=== PATIENT | male | born 1985 | race Caucasian/White ===

== ENCOUNTER 2024-07-21 13:07 | Emergency (ER) | payer OTHER, SELFPAY ==
[2024-07-21 13:18] VITALS: BP 145/93
--- NOTE | 2024-07-21 13:23 | ED.GENMED ---
ED Provider Triage
-
Patient seen by provider in Triage?: Seen in Triage
Attestation: A medical screening examination has been initiated by a qualified medical provider. Based on the assessment performed at this time, it has been determined that an emergent medical condition may exist and the patient has been informed
that further medical evaluation and possible additional diagnostic testing may be needed.
HPI: 39-year-old male presenting to the emergency department for evaluation of left-sided testicular pain that has been ongoing since beginning of June. Patient was in deployment in [place], recently returned home on June 30. Minute
appointment for urology but does not have this appointment scheduled for another week or so. States has increased pain which is what brought him here today. No relief with Advil and extra strength Tylenol which is why he decided to come to the ER.
Patient states that he is sexually active but does not have any concern for STI. No other urinary symptoms. Patient declines STI testing. Ultrasound and urinalysis ordered.
GENERAL: Alert , in no apparent distress
EYE: No visual abnormalities.
NECK: Trachea midline
ENT: No visible abnormalities.
LUNGS: No acute respiratory distress
NEUROLOGICAL: Alert and oriented
SKIN: Skin intact. No visible changes.
MUSCULOSKELETAL: Moving extremities normally
PSYCH: Normal and appropriate interaction.
This is a medical evaluation conducted in person to initiate diagnostic evaluation and provide initial therapeutics. Please see further documentation by the treating clinician.
History of Present Illness
General
Chief Complaint: Male Genito-Urinary Symptoms
Course
Orders/Labs/Results
Orders:
Orders
07/21/24 13:19
US Scrotum Urgent
Comment:
Reason For Exam: left sided pain
07/21/24 13:20
Urinalysis Reflex To Culture Urgent
ED Attending Note
-
Portions of this chart may have been created with voice recognition software.� Occasional wrong word or��sound alike� substitutions may have occurred due to the inherent limitations of voice recognition software.
Discharge Plan
Departure
Prescriptions:
No Action
cetirizine [Zyrtec] 10 mg Tablet
10 mg PO DAILY PRN (Reason: allergies)
montelukast [Singulair] 10 mg Tablet
10 mg PO DAILY
Discharge Date and Time
Print Language: INDONESIAN
[2024-07-21 14:10] LABS: Urine Albumin Negative (Neg - Trace); Urine Bilirubin Negative (Negative); Urine Character Clear (Clear); Urine Color Yellow; Urine Glucose Negative (Negative); Urine Ketone Negative (Negative); Urine Leukocyte Trace (Negative); Urine Nitrite Negative (Negative); Urine Occult Blood Negative (Negative); Urine Urobilinogen Negative (Neg - 1+)
[2024-07-21 14:20] LABS: Urine Amorphous Seen; Urine Red Blood Cell 0-2 /HPF (0-2); Urine Squamous Cell 0-2 /LPF (Few); Urine White Cell 0-2 /HPF (0-5)
--- NOTE | 2024-07-21 17:20 | ED.GENMED ---
History of Present Illness
General
Chief Complaint: Male Genito-Urinary Symptoms
Time Seen by Provider: 07/21/24 15:14
History of Present Illness
History of Present Illness:
39-year-old male with past medical history of asthma and diverticulosis here today for evaluation of approximately 2 to 3 months of left-sided testicular pain. 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
secondary to a varicocele. He has an appointment scheduled with urology this upcoming Wednesday but symptoms today began to worsen. No fevers. No vomiting noted. No dysuria or hematuria. No discharge. No concern for an STI.
Review of Systems
Review of Systems
All Other Systems: ROS reviewed and negative except as documented in HPI and ROS
Phy Exam
Physical Exam
Physical Exam:
GENERAL: Alert , in no apparent distress
EYE: pupils equal and reactive
NECK: Supple
GENITOURINARY: Small area of swelling along the left upper scrotal region in the location of where his veins are suggestive of a varicocele. No tenderness. No rashes/lesions. No discharge.
NEUROLOGICAL: Alert and oriented, no focal neuro deficits
SKIN: Warm and dry, skin intact.
MUSCULOSKELETAL: No edema, well perfused.
PSYCH: Normal and appropriate interaction.
Course
Orders/Labs/Results
Orders:
Orders
07/21/24 13:19
US Scrotum Urgent
Comment:
Reason For Exam: left sided pain
07/21/24 13:58
Urinalysis Reflex To Culture Urgent
Date Specimen was Collected: 07/21/24
Time Specimen was Collected: 13:57
Urine Microscopic Reflex Cult Urgent
Abnormal Lab Results
07/21/24
13:58
Leukocyte Esterase Rfl Trace A
(Negative)
Vital Signs
Initial and Last Documented VS:
Initial Vital Signs
Temp Pulse Resp BP Pulse Ox
98.1 F 85 16 145/93 100
07/21/24 13:18 07/21/24 13:18 07/21/24 13:18 07/21/24 13:18 07/21/24 13:18
Last Documented Vital Signs
Temp Pulse Resp BP Pulse Ox
98.1 F 85 16 145/93 100
07/21/24 13:18 07/21/24 13:18 07/21/24 13:18 07/21/24 13:18 07/21/24 13:18
MDM/Problems Addressed
Differential Diagnosis Includes:
39-year-old male with past medical history of asthma and diverticulosis here today for evaluation of approximately 2 to 3 months of left-sided testicular pain. Overall, patient appears well. On exam, the patient has a small area of swelling along
the left upper scrotal region in the location of where his veins are suggestive of a varicocele. Ultrasound was performed which confirms this. Urinalysis negative for infection. Patient stable for discharge at this time with recommendations to
follow-up with urology. Will prescribe ibuprofen for pain. Recommend supportive measures. All questions answered. Stable for discharge.
*Critical Care Note
Total Time (30-74mins, 75-104mins- exclusive of procedures): Not Applicable
ED Attending Note
-
Portions of this chart may have been created with voice recognition software.� Occasional wrong word or��sound alike� substitutions may have occurred due to the inherent limitations of voice recognition software.
Discharge Plan
Departure
Patient Disposition: Home (Routine Discharge)
Date of Disposition: 07/21/24
Time of Disposition: 17:20
Patient with high blood pressure during this ER visit?: Yes
Covid-19: Not Applicable
Discharge Problem:
Left varicocele
Instructions: Varicocele
Prescriptions:
New
ibuprofen 600 mg tablet
600 mg PO Q6H PRN (Reason: Pain) 7 Days Qty: 28 0RF
Rx Instructions:
Take with food or milk
No Action
cetirizine [Zyrtec] 10 mg Tablet
10 mg PO DAILY PRN (Reason: allergies)
montelukast [Singulair] 10 mg Tablet
10 mg PO DAILY
Referrals:
Edmund Malloy MD [Active] - Follow up in 2-3 days
NONE,* [Family Provider] -
Activity Restrictions/Additional Instructions:
You were seen today for evaluation of left-sided testicular pain.
Your ultrasound reveals evidence of a varicocele which is enlargement of the veins.
Please follow-up with urology as an outpatient for your scheduled appointment this upcoming Wednesday.
Return for any new, worsening, or concerning symptoms.
Interventions
Interventions:
*Risk Screen - Suicide Last Done: 07/21/24 13:18
*General Assessment Last Done: 07/21/24 13:18
*Neglect/Abuse Screening Last Done: 07/21/24 13:18
*Nursing Disposition Last Done: 07/21/24 17:27
ED-Male Genitourinary Assessment Last Done: 07/21/24 17:28
Discharge Date and Time
Print Language: [place]
== END 2024-07-21 17:29 | disposition home or self-care (01) ==
LOC: EMR 13:07
PROVIDERS: Physician Assistant Medical; EMERGENCY PHYSICIAN Student in an Organized Health Care Education/Training Program
DX: I86.1 Scrotal varices (principal); J45.909 Unspecified asthma, uncomplicated
CPT/HCPCS: 99284; 76870; 81003; 81015; 93976

== ENCOUNTER → 2024-11-15 14:48 | Outpatient (REF) | payer OTHER, SELFPAY | LOC: HWRAD 14:48 | PROVIDERS: ATTENDING PHYSICIAN Specialist | DX: N45.1 Epididymitis (principal) | CPT/HCPCS: 76870; 93976 ==

== ENCOUNTER 2025-01-11 06:17 | Day surgery (SDC) | payer OTHER, SELFPAY ==
[2025-01-11 08:31] LABS: COVID-19 Antigen Negative (Negative)
== END 2025-01-11 10:24 | disposition home or self-care (01) ==
LOC: GI 06:17
PROVIDERS: ATTENDING PHYSICIAN Internal Medicine Gastroenterology
DX: R19.4 Change in bowel habit (principal); R63.4 Abnormal weight loss; K64.8 Other hemorrhoids; K63.3 Ulcer of intestine; K31.7 Polyp of stomach and duodenum; K29.70 Gastritis, unspecified, without bleeding; K50.00 Crohn's disease of small intestine without complications
CPT/HCPCS: 45380; 43239; 88305; 87502; 87811; 88342

== ENCOUNTER → 2025-03-26 12:41 | Outpatient (REF) | payer OTHER, SELFPAY | LOC: MRI 3T 12:41 | PROVIDERS: ATTENDING PHYSICIAN Internal Medicine Gastroenterology | DX: K50.00 Crohn's disease of small intestine without complications (principal) | CPT/HCPCS: 72197; 74183; A9575 ==